=== PATIENT | female | born 1950 | race African-American/Black ===

== ENCOUNTER 2020-08-30 12:22 | Outpatient (CLI) | payer MEDICARE ==
--- NOTE | 2020-08-30 13:27 | XRay Report ---
LEFT WRIST 4 VIEWS INDICATION: LEFT WRIST PAIN. COMPARISON: None. IMPRESSION: Borderline to mild osteopenia. An impacted, mildly comminuted fracture is identified in the distal radial metaphysis. There is likely intra-articular extension at the radiocarpal joint.Ulna r styloid fracture is also identified. The carpal bones are unremarkable in appropriate relationship. Mild osteoarthritic changes are noted. Diffuse soft tissue swelling. Signer Name: Sukh Wright Jr, MD Signed: 08/30/2020 1:22 PM Workstation Name: [id number]
== END 2020-08-30 12:23 | disposition home or self-care (01) ==
LOC: XRAY 12:22
PROVIDERS: ATTEND Orthopaedic Surgery
DX: S52.502A Unspecified fracture of the lower end of left radius, initial encounter for closed fracture (principal); S52.612A Displaced fracture of left ulna styloid process, initial encounter for closed fracture; M19.032 Primary osteoarthritis, left wrist; M79.89 Other specified soft tissue disorders; X58.XXXA Exposure to other specified factors, initial encounter; Y93.89 Activity, other specified; Y92.89 Other specified places as the place of occurrence of the external cause; Y99.8 Other external cause status